=== PATIENT | female | born 1990 | race African-American/Black ===

== ENCOUNTER 2017-05-21 11:36 | Emergency (ER) ==
[2017-05-21 11:48] VITALS: BP 113/79; TEMP 100.3; BMI 31.3
--- NOTE | 2017-05-21 11:58 | ED.PDOC ---
General ED Provider: Dr. ALANA VICTOR Chief Complaint: Nausea/Vomiting Stated Complaint: Nausea, vomiting, and diarrhea x 3 since yesterday. Time Seen by Physician: 11:56 Mode of Arrival: Walk-In Information Source: Patient Exam Limitations: No limitations Nursing and Triage Documentation Reviewed and Agree: Yes GI Complaint Exam - Vomiting/Diarrhea Complaint/Exam Onset/Duration: 1 day Symptoms Are: Still present Episodes of Vomiting over last 24 Hours: 3 Episodes of Diarrhea Over Last 24 Hours: 3 Initial Severity: Severe Current Severity: Moderate Character of Vomiting: Reports: Non-bilious, Retching Character of Diarrhea: Reports: Watery Aggravating: Reports: None Alleviating: Reports: None Associated Signs and Symptoms: Reports: Abdominal pain (headache (mild) and legs are sore) Last Bowel Movement: 0500 : 0 Menses: Regular Recent Positive Test: No (Pt is homosexual) Use of Oral Contraceptives: No Use of Depoprovera: No Non-GI Risk Factors: Reports: None Surgical Obstruction Risk Factors: Reports: None Related Surgical History: Reports: None Abdominal Findings: Present: None Kussmaul Respirations Present: No Differential Diagnoses: Dehydration, Viral Gastroenteritis, Bacterial Gastroenteritis, Pancreatitis Review of Systems - Review Of Systems Constitutional: Reports: No symptoms Respiratory: Reports: No symptoms Cardiac: Reports: No symptoms GI: Reports: Abdominal pain, Diarrhea, Nausea, Poor appetite, Vomiting : Reports: No symptoms Musculoskeletal: Reports: Muscle pain Skin: Reports: No symptoms Neurological: Reports: Headache All Other Systems: Reviewed and Negative Past Medical History - Past Medical History Previously Healthy: Yes Endocrine: Reports: None Cardiovascular: Reports: None Respiratory: Reports: None Hematological: Reports: None Gastrointestinal: Reports: None Genitourinary: Reports: None Neuro/Psych: Reports: None Musculoskeletal: Reports: None Cancer: Reports: None Last Menstrual Period: last month, midmonth - Surgical History General Surgical History: Reports: None - Family History Family History: Reports: None - Social History Smoking Status: Former smoker Hx Substance Use: No Alcohol Screening: Occasionally Lives: Alone (lives with female partner) - Immunizations Tetanus Shot up to Date: No Influenza Vaccine within 12 Months: No Pneumococcal Vaccine up to Date: No Physical Exam - Physical Exam Appearance: Well-appearing Ill-appearing: None Pain Distress: Mild ENT: Ears normal, Nose normal, Oropharynx normal Neck: Supple Respiratory: Airway patent, Breath sounds clear, Breath sounds equal, Respirations nonlabored Cardiovascular: RRR, Pulses normal, No rub, No murmur GI/: Soft, No masses, Bowel sounds normal, Tender (generalized tenderness especially epigastric) Musculoskeletal: Normal strength, ROM intact, No edema, No calf tenderness Skin: Warm, Dry, Normal color Neurological: Sensation intact, Motor intact, Reflexes intact, Cranial nerves intact, Alert, Oriented Psychiatric: Affect appropriate, Mood appropriate Re-Evaluation - Re-Evaluation Time of Re-Evaluation: 14:02 Status: Improved Vital Signs Stable: Yes Pain Level: 0 Appearance: NAD (very sleepy) Lungs: Clear Skin: Warm and Dry Neuro: Other (Very sleepy but arousable to voice) CV: RRR Additional Comments: accucheck: 67. Pt given sweetened OJ and lunch Critical Care Note - Critical Care Note Total Time (mins): 0 Course - Course Hematology/Chemistry: 05/21/17 12:20 05/21/17 12:20 Orders, Labs, Meds: Lab Review 05/21/17 05/21/17 12:20 13:25 WBC 4.10 L RBC 4.07 L Hgb 12.6 Hct 36.5 L MCV 89.7 MCH 31.0 MCHC 34.5 RDW Coeff of Mavis 12.5 Plt Count 213 Immature Gran % (Auto) 0.0 Neut % (Auto) 80.3 Lymph % (Auto) 14.1 [place] % (Auto) 5.6 Eos % (Auto) 0.0 Baso % (Auto) 0.0 Immature Gran # (Auto) 0.0 Neut # 3.3 Lymph # 0.6 [place] # 0.2 L Eos # 0.0 Baso # 0.0 Sodium 140 Potassium 3.5 Chloride 104 Carbon Dioxide 26 Anion Gap 13.5 BUN 8 Creatinine 0.75 Estimated GFR (MDRD) 112.00 BUN/Creatinine Ratio 10.66 Glucose 91 Calcium 8.5 Total Bilirubin 0.75 AST 16 ALT 17 Alkaline Phosphatase 61 Total Protein 7.1 Albumin 3.4 Globulin 3.7 Albumin/Globulin Ratio 0.92 Amylase 73 Lipase 6 L Urine Color Yellow Urine Clarity Cloudy Urine pH 6.0 Ur Specific [place] 1.025 Urine Protein 1+ Urine Glucose (UA) Negative Urine Ketones 4+ Urine Blood Trace-intact Urine Nitrite Negative Urine Bilirubin 1+ Urine Urobilinogen 1.0 Ur Leukocyte Esterase Trace Urine Microscopic RBC 5-10 Urine Microscopic WBC 0-2 Ur Squamous Epith Cells 30-50 Orders Category Date Time Status AMYLASE Stat LAB 05/21/17 12:20 Completed CBC W/ AUTO DIFF Stat LAB 05/21/17 12:20 Completed COMPREHENSIVE METABOLIC PANEL Stat LAB 05/21/17 12:20 Completed LIPASE Stat LAB 05/21/17 12:20 Completed URINALYSIS C & S IF INDICATED Stat LAB 05/21/17 13:25 Completed Vital Signs: Temp Pulse Resp BP Pulse Ox 05/21/17 11:37 100.3 F H 99 H 20 113/79 96 Departure - Departure Time of Disposition: 14:48 Disposition: HOME SELF-CARE Discharge Problem: Viral gastroenteritis Discharge Problem: (Ruled Out): Adverse effect of drug Instructions: Hematuria (ED), Gastroenteritis (ED), Adverse Drug Reaction (ED) Condition: Good Pt referred to PMD for follow-up: Yes (see PCP if no better in 3 days, F/U with PCP regarding blood in urine) Prescriptions: Ondansetron [Zofran Odt] 4 mg PO Q8HR PRN #12 tab.rapdis PRN Reason: Nausea / Vomiting Allergies/Adverse Reactions: Allergies Penicillins Adverse Reaction (Verified 05/21/17 11:47) Home Medications: Ambulatory Orders Ondansetron [Zofran Odt] 4 mg PO Q8HR PRN #12 tab.rapdis 05/21/17
[2017-05-21 12:26] LABS: HEMATOCRIT 36.5 % (37.0-47.0); HEMOGLOBIN 12.6 g/dl (12.0-16.0); LYMPHOCYTES # (AUTO) 0.6 K/uL (0.60-3.4); LYMPHOCYTES % (AUTO) 14.1 (10.0-50.0); MEAN CORPUSCULAR HGB CONC 34.5 (31.8-35.4); MEAN CORPUSCULAR VOLUME 89.7 fl (81.0-99.0); MONOCYTES # (AUTO) 0.2 K/uL (0.4-2.0); MONOCYTES % (AUTO) 5.6 (0-10); NEUTROPHILS # (AUTO) 3.3 K/ul (2.0-6.9); NEUTROPHILS % (AUTO) 80.3; PLATELET COUNT 213 10^3/uL (140-440); RED BLOOD COUNT 4.07 10^6/ul (4.20-5.40)
[2017-05-21 13:42] LABS: BILIRUBIN,URINE 1+ (NEGATIVE); KETONES,URINE 4+ (NEGATIVE); LEUKOCYTE ESTERASE ,URINE Trace (NEGATIVE); NITRITE,URINE Negative (NEGATIVE); PROTEIN,URINE 1+ (NEGATIVE); URINE, BLOOD Trace-intact (NEGATIVE)
[2017-05-21 13:49] LABS: ADD URINE MICROSCOPIC YES
[2017-05-21 14:12] LABS: ALBUMIN 3.4 g/dL (3.4-5.0); ALBUMIN/GLOBULIN RATIO 0.92; ANION GAP 13.5; BILIRUBIN,TOTAL 0.75 mg/dL (0.00-1.20); BUN/CREATININE RATIO 10.66; CALCIUM 8.5 mg/dL (8.2-10.2); CREATININE 0.75 mg/dL (0.60-1.30); POTASSIUM 3.5 mmol/L (3.5-5.10); TOTAL PROTEIN 7.1 g/dL (6.4-8.2)
== END 2017-05-21 14:55 | disposition home or self-care (01) ==
LOC: ED 11:36
DX: A08.4 Viral intestinal infection, unspecified (principal)
CPT/HCPCS: 36415; 80053; 81001; 82150; 83690; 85025; 99283

== ENCOUNTER 2018-03-27 08:58 | Emergency (ER) ==
[2018-03-27 09:04] VITALS: TEMP 98.6; BMI 34.1
--- NOTE | 2018-03-27 09:13 | ED.PDOC ---
General ED Provider: Dr. ZACH GR Chief Complaint: Vaginal Bleeding Stated Complaint: Vaginal discharge -light pink in color. Is A0 with LMP 7 -4-18 but shorter and heavier than last months period. States she took home preg test in February because "I just felt unusual" It was negative. Does not use control and has not been sexually active since last period. Time Seen by Physician: 09:10 Mode of Arrival: Walk-In Information Source: Patient Primary Care Provider: CHE HACKETT Nursing and Triage Documentation Reviewed and Agree: Yes Does patient meet sepsis criteria?: No System Inflammatory Response Syndrome: Not Applicable Sepsis Protocol: For patient's 13 years and over: Temp is 96.8 and below OR 101 and greater Pulse >90 BPM Resp >20/minute Acutely Altered Mental Status Are patient's symptoms suggestive of a new infection, such as: -Pneumonia -Skin, Soft Tissue -Endocarditis -UTI -Bone, Joint Infection -Implantable Device -Acute Abdominal Infection -Wound Infection -Meningitis -Blood Stream Catheter Infection -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 Exam - Vaginal Bleeding Complaint/Exam Symptoms Are: Still present Timing: Intermittent Initial Severity: Mild Current Severity: None # of Pads Per Hour: 0 Character: Reports: Bright red (light pink to brighter pink) Aggravating: Reports: None Alleviating: Reports: None Associated Signs and Symptoms: Denies: Dizziness, Lightheadedness, UTI symptoms , Abdominal pain, Cramping, Generalized pain Related History: Reports: Irregular menses : 1 Para: 1 Hx Total # of Abortions (Spontaneous & Elective): 0 Ectopic Risk Factors: Reports: None Spontaneous AB Risk Factors: Reports: None Placental Abruption Risk Factors: Reports: None Patient Rh Status: Unknown Related Surgical History: Reports: Abdominal Findings: Present: Other (suprapubic tenderness) Vulva Exam: Present: Normal Findings Vaginal Exam: Present: Normal Findings Cervical Exam: Present: Normal findings (clear mucoid cervical discharge) Uterine Exam: Size WNL, Nontender Adnexal Exam: Present: Normal Findings, Tender (minimal adenxal tenderness without ovarian or adenexal enlargement) Differential Diagnoses: DUB, Ectopic Review of Systems - Review Of Systems Constitutional: Reports: No symptoms Eyes: Reports: No symptoms Ears, Nose, Mouth, Throat: Reports: No symptoms Respiratory: Reports: No symptoms Cardiac: Reports: No symptoms GI: Reports: No symptoms : Reports: Discharge Musculoskeletal: Reports: No symptoms Skin: Reports: No symptoms Neurological: Reports: No symptoms Endocrine: Reports: No symptoms Hematologic/Lymphatic: Reports: No symptoms All Other Systems: Reviewed and Negative Past Medical History - Past Medical History Previously Healthy: Yes Endocrine: Reports: None Cardiovascular: Reports: None Respiratory: Reports: None Hematological: Reports: None Gastrointestinal: Reports: None Genitourinary: Reports: None Neuro/Psych: Reports: None Musculoskeletal: Reports: None Cancer: Reports: None Last Menstrual Period: THIS MONTH - Surgical History General Surgical History: Reports: None, - Family History Family History: Reports: None - Social History Smoking Status: Former smoker Hx Substance Use: No Alcohol Screening: Occasionally - Immunizations Tetanus Shot up to Date: Yes Influenza Vaccine within 12 Months: No Pneumococcal Vaccine up to Date: No Physical Exam - Physical Exam Appearance: Well-appearing, No pain distress, Well-nourished Eyes: ELIDIA, EOMI, Conjunctiva clear ENT: Ears normal, Nose normal, Oropharynx normal Respiratory: Airway patent, Breath sounds clear, Breath sounds equal, Respirations nonlabored Cardiovascular: RRR, Pulses normal, No rub, No murmur GI/: Soft, Nontender, No masses, Bowel sounds normal, No Organomegaly Musculoskeletal: Normal strength, ROM intact, No edema, No calf tenderness Skin: Warm, Dry, Normal color Neurological: Sensation intact, Motor intact, Reflexes intact, Cranial nerves intact, Alert, Oriented Psychiatric: Affect appropriate, Mood appropriate Critical Care Note - Critical Care Note Total Time (mins): 0 Course - Course Hematology/Chemistry: 03/27/18 08:45 03/27/18 08:45 Orders, Labs, Meds: Lab Review 03/27/18 03/27/18 03/27/18 08:45 08:45 08:45 WBC 5.20 RBC 4.20 Hgb 13.1 Hct 39.1 MCV 93.1 MCH 31.2 H MCHC 33.5 RDW Coeff of Mavis 12.1 Plt Count 277 Immature Gran % (Auto) 0.2 Neut % (Auto) 60.7 Lymph % (Auto) 31.0 [place] % (Auto) 7.7 Eos % (Auto) 0.2 Baso % (Auto) 0.2 Immature Gran # (Auto) 0.0 Neut # (Auto) 3.2 Lymph # (Auto) 1.6 [place] # (Auto) 0.4 Eos # (Auto) 0.0 Baso # (Auto) 0.0 Sodium 138 Potassium 4.3 Chloride 106 Carbon Dioxide 24 Anion Gap 12.3 BUN 12 Creatinine 0.81 Estimated GFR (MDRD) 101.00 BUN/Creatinine Ratio 14.81 Glucose 87 Calcium 9.3 Total Bilirubin 0.5 AST 18 ALT 14 Alkaline Phosphatase 75 Total Protein 7.6 Albumin 3.7 Globulin 3.9 Albumin/Globulin Ratio 0.95 Serum , Qual Negative Urine Color Urine Clarity Urine pH Ur Specific [place] Urine Protein Urine Glucose (UA) Urine Ketones Urine Blood Urine Nitrite Urine Bilirubin Urine Urobilinogen Ur Leukocyte Esterase Urine Microscopic RBC Ur Squamous Epith Cells Blood Type 03/27/18 03/27/18 03/27/18 08:45 08:45 10:23 WBC RBC Hgb Hct MCV MCH MCHC RDW Coeff of Mavis Plt Count Immature Gran % (Auto) Neut % (Auto) Lymph % (Auto) [place] % (Auto) Eos % (Auto) Baso % (Auto) Immature Gran # (Auto) Neut # (Auto) Lymph # (Auto) [place] # (Auto) Eos # (Auto) Baso # (Auto) Sodium Potassium Chloride Carbon Dioxide Anion Gap BUN Creatinine Estimated GFR (MDRD) BUN/Creatinine Ratio Glucose Calcium Total Bilirubin AST ALT Alkaline Phosphatase Total Protein Albumin Globulin Albumin/Globulin Ratio Serum , Qual Urine Color Yellow Urine Clarity Clear Urine pH 6.5 Ur Specific [place] 1.025 Urine Protein Negative Urine Glucose (UA) Negative Urine Ketones Negative Urine Blood Trace-lysed Urine Nitrite Negative Urine Bilirubin Negative Urine Urobilinogen 0.2 Ur Leukocyte Esterase Negative Urine Microscopic RBC 5-10 Ur Squamous Epith Cells 2-5 Blood Type O POSITIVE O POSITIVE Orders Category Date Time Status CBC W/ AUTO DIFF Stat LAB 03/27/18 08:45 Completed CHLAMYDIA/GC AMPLIFICATION Stat LAB 03/27/18 09:41 Received CMP [COMPREHENSIVE METABOLIC PANEL] Stat LAB 03/27/18 08:45 Completed HCG QUALITATIVE [SERUM ] Stat LAB 03/27/18 08:45 Completed LOGAN PREP Stat LAB 03/27/18 09:55 Received TYPE/RH (INHOUSE LAB) [ABO/RH TYPE] Stat LAB 03/27/18 08:45 Completed UA [URINALYSIS C & S IF INDICATED] Stat LAB 03/27/18 08:45 Completed VAGINAL CULTURE [GENITAL CULTURE] Stat LAB 03/27/18 09:55 Received WET PREP Stat LAB 03/27/18 09:55 Received Vital Signs: Temp Pulse Resp BP Pulse Ox 03/27/18 08:59 98.6 F 91 H 16 149/93 H 97 Departure - Departure Time of Disposition: 11:24 Disposition: HOME SELF-CARE Discharge Problem: Vaginal bleeding between periods Instructions: Dysfunctional Uterine Bleeding (ED) Condition: Good 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
[2018-03-27 11:39] VITALS: BP 124/85
== END 2018-03-27 11:39 | disposition home or self-care (01) ==
LOC: ED 08:58
DX: N93.8 Other specified abnormal uterine and vaginal bleeding (principal)
CPT/HCPCS: 36415; 80053; 81001; 84703; 85025; 86900; 87070; 87210; 87800; 99283

== ENCOUNTER 2018-04-25 15:26 | Outpatient (CLI) | END 2018-04-25 15:27 | disposition home or self-care (01) | LOC: LAB 15:26 | PROVIDERS: ATTEND Obstetrics & Gynecology | DX: Z01.818 Encounter for other preprocedural examination (principal) | CPT/HCPCS: 36415; 81001; 85025 ==

== ENCOUNTER 2018-10-03 14:43 | Emergency (ER) ==
[2018-10-03 14:49] VITALS: TEMP 98.1; BMI 33.3
[2018-10-03 14:55] VITALS: BP 127/85
--- NOTE | 2018-10-03 15:46 | ED.PDOC ---
General ED Provider: Dr. AUGUSTUS LAU Chief Complaint: Vaginal Discharge/Swelling Stated Complaint: partner has had std symp she DOES NOT Time Seen by Physician: 15:00 (RN PRESENT AT ALL TIMES ) Mode of Arrival: Walk-In Information Source: Patient Exam Limitations: No limitations Primary Care Provider: DAVID WHEAT Nursing and Triage Documentation Reviewed and Agree: Yes Does patient meet sepsis criteria?: No System Inflammatory Response Syndrome: Not Applicable Sepsis Protocol: For patient's 13 years and over: Temp is 96.8 and below OR 101 and greater Pulse >90 BPM Resp >20/minute Acutely Altered Mental Status Are patient's symptoms suggestive of a new infection, such as: -Pneumonia -Skin, Soft Tissue -Endocarditis -UTI -Bone, Joint Infection -Implantable Device -Acute Abdominal Infection -Wound Infection -Meningitis -Blood Stream Catheter Infection -Unknown Complaint Exam - STD Male Complaint/Exam Current Severity: None Location: Reports: None Character: Recent STD exposure Aggravating: Reports: None Alleviating: Reports: None Associated Signs and Symptoms: Denies: Dysuria, Penile sores, Scrotal pain, Scrotal swelling, Testicular pain, Testicular swelling Related Surgical History: Reports: None Differential Diagnoses: UTI Review of Systems - Review Of Systems Constitutional: Reports: No symptoms Eyes: Reports: No symptoms Ears, Nose, Mouth, Throat: Reports: No symptoms Respiratory: Reports: No symptoms Cardiac: Reports: No symptoms GI: Reports: No symptoms : Reports: No symptoms Musculoskeletal: Reports: No symptoms Skin: Reports: No symptoms Neurological: Reports: No symptoms Endocrine: Reports: No symptoms Hematologic/Lymphatic: Reports: No symptoms All Other Systems: Reviewed and Negative Past Medical History - Past Medical History Previously Healthy: Yes Endocrine: Reports: None Cardiovascular: Reports: None Respiratory: Reports: None Hematological: Reports: None Gastrointestinal: Reports: None Genitourinary: Reports: None Neuro/Psych: Reports: None Musculoskeletal: Reports: None Cancer: Reports: None Last Menstrual Period: september - Surgical History General Surgical History: Reports: None, - Family History Family History: Reports: None - Social History Smoking Status: Former smoker Hx Substance Use: No Alcohol Screening: Occasionally - Immunizations Influenza Vaccine within 12 Months: No Pneumococcal Vaccine up to Date: No Physical Exam - Physical Exam Appearance: Well-appearing, No pain distress, Well-nourished Eyes: ELIDIA, EOMI, Conjunctiva clear ENT: Ears normal, Nose normal, Oropharynx normal Respiratory: Airway patent, Breath sounds clear, Breath sounds equal, Respirations nonlabored Cardiovascular: RRR, Pulses normal, No rub, No murmur GI/: Soft, Nontender, No masses, Bowel sounds normal, No Organomegaly Musculoskeletal: Normal strength, ROM intact, No edema, No calf tenderness Skin: Warm, Dry, Normal color Neurological: Sensation intact, Motor intact, Reflexes intact, Cranial nerves intact, Alert, Oriented Psychiatric: Affect appropriate, Mood appropriate Critical Care Note - Critical Care Note Total Time (mins): 0 Course - Course Orders, Labs, Meds: Lab Review 10/03/18 15:20 Urine Color Yellow Urine Clarity Slightly Urine pH 6.0 Ur Specific [place] 1.025 Urine Protein Negative Urine Glucose (UA) Negative Urine Ketones Negative Urine Blood Trace-intact Urine Nitrite Negative Urine Bilirubin Negative Urine Urobilinogen 2.0 Ur Leukocyte Esterase 1+ Urine Microscopic WBC 5-10 Ur Squamous Epith Cells 2-5 Urine Bacteria 2+ Urine Mucus 2+ Orders Category Date Time Status URINALYSIS C & S IF INDICATED Stat LAB 10/03/18 15:02 Uncollected URINE CULTURE Stat LAB 10/03/18 15:20 Received Vital Signs: Temp Pulse Resp BP Pulse Ox 10/03/18 14:44 98.1 F 90 16 127/85 98 Departure - Departure Time of Disposition: 15:45 Disposition: HOME SELF-CARE Discharge Problem: UTI (urinary tract infection) Qualifiers: Urinary tract infection type: site unspecified Instructions: Urinary Tract Infection in Women (ED), Sexually Transmitted Diseases (ED) Condition: Good Pt referred to PMD for follow-up: Yes IPMP verified?: No Additional Instructions: Please call your Family Physician as soon as possible to schedule a follow-up appointment. Allergies/Adverse Reactions: Allergies Penicillins Adverse Reaction (Verified 10/03/18 14:50) Home Medications: Ambulatory Orders 1 [No Reported Medications] 03/27/18
== END 2018-10-03 15:50 | disposition home or self-care (01) ==
LOC: ED 14:43
DX: N89.8 Other specified noninflammatory disorders of vagina (principal); N39.0 Urinary tract infection, site not specified
CPT/HCPCS: 81001; 87086; 99283